=== PATIENT | female | born 1990 | race Two or more races ===

== ENCOUNTER 2016-09-28 00:07 | Emergency (ER) | payer OTHER ==
[~2016-09-28 00:07] MED LIST: ALPR0.5T6 PO; BENZ100C PO; ESCI10TA10 PO; HYDR-971 PO; METR500T PO; NAPR500T PO; ONDA4TAB7 PO; POLY17PO29 PO
[2016-09-28 00:09] VITALS: BP 121/78
--- NOTE | 2016-09-28 01:42 | PHYS DOC ---
Past Medical History Past Medical History: Anxiety, Asthma, Migraines, STD Past Surgical History: Tubal ligation, Other Additional Past Surgical Histo: D&C, RUPTURED CYST REMOVAL Alcohol Use: None Drug Use: None Adult General Chief Complaint Chief Complaint: ALLERGIC REACTION HPI HPI Patient is a 25 year old female presents emergency department stating that she was placed on Augmentin by her primary care physician for gonorrhea. Patient states she was seen at [facility] in which they tested her positive for gonorrhea and she was not treated at that time. Patient presents to the emergency department tonight stating that she has had tingling around her mouth and feeling is that she is itchy after taking the Augmentin. Patient continues to state that she is having vaginal discharge with lower abdominal pain and discomfort. She denies any urinary symptoms. Review of Systems Review of Systems Constitutional: Denies fever or chills [] Eyes: Denies change in visual acuity, redness, or eye pain [] HENT: Denies nasal congestion or sore throat [] Respiratory: Denies cough or shortness of breath [] Cardiovascular: No additional information not addressed in HPI [] GI: lower abdominal pain, denies nausea, vomiting, bloody stools or diarrhea [] : Denies dysuria or hematuria. C/o vaginal discharge Musculoskeletal: Denies back pain or joint pain [] Integument: Denies rash or skin lesions [] Neurologic: Denies headache, focal weakness or sensory changes [] Current Medications Current Medications Current Medications Medications (Trade) Dose Ordered Sig/Rob Start Time Stop Time Status Last Admin Dose Admin Azithromycin (Zithromax) 1,000 mg 1X ONCE 09/28/16 02:00 09/28/16 02:01 DC 09/28/16 02:10 1,000 MG Ceftriaxone Sodium (Rocephin Im) 250 mg 1X ONCE 09/28/16 02:00 09/28/16 02:01 DC 09/28/16 02:11 250 MG Allergies Allergies Allergies Coded Allergies Type Severity Reaction Last Updated Verified morphine Allergy Intermediate Hives 06/02/13 Yes tramadol Allergy Intermediate VOMITING 06/02/13 Yes Physical Exam Physical Exam Constitutional: Well developed, well nourished, no acute distress, non-toxic appearance. [] HENT: Normocephalic, atraumatic, bilateral external ears normal, oropharynx moist, no oral exudates, nose normal. [] Eyes: PERRLA, EOMI, conjunctiva normal, no discharge. [] Neck: Normal range of motion, no tenderness, supple, no stridor. [] Cardiovascular:Heart rate regular rhythm, no murmur [] Lungs & Thorax: Bilateral breath sounds clear to auscultation [] Abdomen: Bowel sounds hypoactive, soft, no tenderness, no masses, no pulsatile masses. [] Skin: Warm, dry, no erythema, no rash. [] Back: No tenderness, no CVA tenderness. [] Extremities: No tenderness, no cyanosis, no clubbing, ROM intact, no edema. [] Neurologic: Alert and oriented X 3, normal motor function, normal sensory function, no focal deficits noted. [] Psychologic: Affect normal, judgement normal, mood normal. [] Current Patient Data Vital Signs Vital Signs Date Time Temp Pulse Resp B/P Pulse Ox O2 Delivery O2 Flow Rate FiO2 09/28/16 00:09 97.7 66 16 100 Room Air 97.7 Lab Values Microbiology 09/28/16 Wet Prep - Final, Complete EKG EKG [] Radiology/Procedures Radiology/Procedures [] Course & Med Decision Making Course & Med Decision Making Pertinent Labs and Imaging studies reviewed. (See chart for details) Patient with the vaginal exam completed with no discharge noted in the vaginal vault patient does have an odor noted from the vaginal area. On manual exam no adnexal tenderness noted no CMT tenderness noted. Patient will be treated for gonorrhea as which she states she was tested positive for when she was at [facility]. Wet prep negative for BV. Patient was instructed to avoid sexual intercourse for the next 2 weeks. Signs and symptoms to return back to emergency department as been provided. [] Dragon Disclaimer Dragon Disclaimer This electronic medical record was generated, in whole or in part, using a voice recognition dictation system. Departure Departure Impression: Primary Impression: Vaginitis Additional Impression: Exposure to sexually transmitted disease (STD) Disposition: 01 HOME, SELF-CARE Condition: STABLE Referrals: LON MORRIS MD (PCP) Patient Instructions: Sexually Transmitted Disease, [id number], Vaginitis, [id number] Additional Instructions: Activity as tolerated. Avoid sexual intercourse for the next 2 weeks. Medication as prescribed. Follow-up primary care physician next 5-7 days. Return back to emergency prior signs and symptoms of become worse. Problem Qualifiers DANA NAVARRO DEVELOPMENT EXPERT Sep 28, 2016 01:42
[2016-09-28] MEDS ORDERED: AZITHROMYCIN 250 MG TABLET. PO ONE (02:00)
[2016-09-28] MEDS ORDERED: cefTRIAXone IM 250 MG VIAL IM ONE (02:00)
[2016-09-28] MEDS ORDERED: METR500T PO (02:03)
== END 2016-09-28 02:15 | disposition home or self-care (01) ==
LOC: ER 00:07
DX: N76.0 Acute vaginitis (principal); N89.8 Other specified noninflammatory disorders of vagina; F41.9 Anxiety disorder, unspecified; J45.909 Unspecified asthma, uncomplicated; G43.909 Migraine, unspecified, not intractable, without status migrainosus; Z98.51 Tubal ligation status; Z88.5 Allergy status to narcotic agent; Z20.2 Contact with and (suspected) exposure to infections with a predominantly sexual mode of transmission; Z88.6 Allergy status to analgesic agent
CPT/HCPCS: 87491; 87591; 96372; 99284; J0696; Q0111; Q0144

== ENCOUNTER 2017-07-05 12:01 | Emergency (ER) | payer OTHER ==
[2017-07-05] MEDS: predniSONE 20 MG TABLET PO ×2 (13:03)
[2017-07-05] MEDS: FAMOTIDINE 20 MG TABLET. PO ×2 (13:03)
[2017-07-05] MEDS: diphenhydrAMINE HCL 25 MG CAPSULE PO ×2 (13:03)
== END 2017-07-05 13:10 | disposition home or self-care (01) ==
LOC: ER 12:01
DX: L25.9 Unspecified contact dermatitis, unspecified cause (principal); J45.909 Unspecified asthma, uncomplicated; F41.9 Anxiety disorder, unspecified; G43.909 Migraine, unspecified, not intractable, without status migrainosus; Z98.51 Tubal ligation status; Z88.5 Allergy status to narcotic agent
CPT/HCPCS: 99284; J7512; Q0163

== ENCOUNTER 2017-10-28 13:36 | Emergency (ER) | payer OTHER ==
[2017-10-28] MEDS: fentaNYL PF VIAL 100 MCG/2 ML VIAL IV (14:27)
[2017-10-28 14:34] LABS: ADD MAN DIFF? NO
[2017-10-28 14:39] LABS: BASO % 0 % (0-3); EOS % 1 % (0-3); HEMATOCRIT 34.7 % (36.0-47.0); HEMOGLOBIN 11.9 g/dL (12.0-15.5); LYMPH # 1.6 x10^3/uL (1.0-4.8); LYMPH % 22 % (24-48); MEAN CORPUSCULAR HEMOGLOBIN 30 pg (25-35); MEAN CORPUSCULAR HGB CONC 34 g/dL (31-37); MEAN CORPUSCULAR VOLUME 86 fL (79-100); MONO # 0.6 x10^3/uL (0.0-1.1); MONO % 8 % (0-9); NEUT # 5.1 x10^3uL (1.8-7.7); NEUT % 69 % (31-73); PLATELET COUNT 176 x10^3/uL (140-400); RED BLOOD COUNT 4.02 x10^6/uL (3.50-5.40); RED CELL DISTRIBUTION WIDTH 12.6 % (11.5-14.5); WHITE BLOOD COUNT 7.4 x10^3/uL (4.0-11.0)
[2017-10-28 14:53] LABS: ANION GAP 8 (6-14); BLOOD UREA NITROGEN 16 mg/dL (7-20); BUN/CREATININE RATIO 27 (6-20); CALCIUM 8.1 mg/dL (8.5-10.1); CARBON DIOXIDE 26 mmol/L (21-32); CHLORIDE 107 mmol/L (98-107); CREATININE 0.6 mg/dL (0.6-1.0); GLUCOSE 107 mg/dL (70-99); POTASSIUM 3.7 mmol/L (3.5-5.1); SODIUM 141 mmol/L (136-145)
[2017-10-28 14:58] LABS: ALBUMIN 3.6 g/dL (3.4-5.0); ALBUMIN/GLOBULIN RATIO 1.1 (1.0-1.7); ALK PHOS 38 U/L (46-116); ALT (SGPT) 14 U/L (14-59); AST (SGOT) 11 U/L (15-37); LIPASE 85 U/L (73-393); TOTAL BILIRUBIN 0.2 mg/dL (0.2-1.0); TOTAL PROTEIN 6.9 g/dL (6.4-8.2)
[2017-10-28] MEDS ORDERED: CONTRAST GIVEN MC (15:00)
[2017-10-28 15:04] LABS: URINE HCG POC HCG NEGATIVE (Negative)
[2017-10-28] MEDS: IOHEXOL 300 MG/ML 100ML VIAL. IV (15:11)
[2017-10-28 15:25] LABS: NEG OBC SER NEG; POS OBC SER POS; PREG TEST PT QUAL NEGATIVE (NEG)
[2017-10-28] MEDS: oxyCODONE IR 5 MG TABLET PO (16:17)
[2017-10-28 16:45] LABS: BILIRUBIN,URINE NEGATIVE (NEG); CLARITY,URINE CLEAR; COLOR,URINE YELLOW; GLUCOSE,URINE NEGATIVE (NEG); NITRITE,URINE NEGATIVE (NEG); PROTEIN,URINE NEGATIVE (NEG-TRACE); UROBILINOGEN,URINE 0.2 mg/dL (0.2 mg/dL)
[2017-10-28 17:12] LABS: BACTERIA,URINE 0 /HPF (0-FEW); RBC,URINE 0 /HPF (0-2); SQUAMOUS EPITHELIAL CELL,UR OCC /LPF; WBC,URINE OCC /HPF (0-4)
== END 2017-10-28 17:55 | disposition home or self-care (01) ==
LOC: ER 13:36
DX: S60.042A Contusion of left ring finger without damage to nail, initial encounter (principal); S00.81XA Abrasion of other part of head, initial encounter; R10.84 Generalized abdominal pain; J45.909 Unspecified asthma, uncomplicated; G43.909 Migraine, unspecified, not intractable, without status migrainosus; F17.210 Nicotine dependence, cigarettes, uncomplicated; Z98.51 Tubal ligation status; Z88.5 Allergy status to narcotic agent; Z88.6 Allergy status to analgesic agent; Y04.0XXA Assault by unarmed brawl or fight, initial encounter; Y93.89 Activity, other specified; Y99.8 Other external cause status; Y92.89 Other specified places as the place of occurrence of the external cause
CPT/HCPCS: 36415; 70450; 70486; 71046; 72125; 73130; 74177; 80053; 81001; 81025; 83690; 84703; 85025; 96374; 99285-25; J3010; Q9967

== ENCOUNTER 2019-10-22 09:16 | Emergency (ER) | payer MEDICAID, OTHER ==
[~2019-10-22] VITALS: Ht 157.5 cm; Wt 74.5 kg
[~2019-10-22 09:16] MED LIST changes: +DIPH25CA58 PO; -ESCI10TA10 PO; +FAMO20TA5 PO; +HYDR-3164 PO; -HYDR-971 PO; +LEXAPRO10 MG PO; +NAPR-683 PO; -NAPR500T PO; +PRED50TA PO; +TRIA15CR3 TP
[2019-10-22] MEDS ORDERED: NAPR-514 PO (09:35)
--- NOTE | 2019-10-22 09:35 | PHYS DOC ---
Past Medical History Past Medical History: Anxiety, Asthma, Migraines, STD Past Surgical History: Tubal ligation, Other Additional Past Surgical Histo: D&C, RUPTURED CYST REMOVAL Smoking Status: Current Every Day Smoker Alcohol Use: None Drug Use: None General Adult EDM: Chief Complaint: WRIST PAIN HPI: HPI: Patient is a 29-year-old otherwise healthy female who presents with a cyst on the volar aspect of her distal left wrist. She states this is been there for some time but it seems to be getting bigger and now is causing her some pain and paresthesias in the area. There is been no redness. There is been no injury to the area. She states she has had these in the past and they have gone away. [] Review of Systems: Review of Systems: Constitutional: Denies fever or chills. [] Eyes: Denies change in visual acuity. [] Musculoskeletal: Per HPI [] Integument: Denies rash. [] Psychiatric: Denies depression or anxiety. [] Heart Score: Risk Factors: Risk Factors: DM, Current or recent (<one month) smoker, HTN, HLP, family history of CAD, obesity. Risk Scores: Score 0 - 3: 2.5% MACE over next 6 weeks - Discharge Home Score 4 - 6: 20.3% MACE over next 6 weeks - Admit for Clinical Observation Score 7 - 10: 72.7% MACE over next 6 weeks - Early Invasive Strategies Allergies: Allergies: Allergies Coded Allergies Type Severity Reaction Last Updated Verified morphine Allergy Intermediate Hives 06/02/13 Yes tramadol Allergy Intermediate VOMITING 06/02/13 Yes Physical Exam: PE: Constitutional: Well developed, well nourished, no acute distress, non-toxic appearance. [] HENT: Normocephalic, atraumatic, bilateral external ears normal, oropharynx moist, no oral exudates, nose normal. [] [] Skin: Warm, dry, no erythema, no rash. [] Back: No tenderness, no CVA tenderness. [] Extremities: There is a pea-sized ganglion cyst on the volar aspect of the left distal wrist. [] Neurologic: Alert and oriented X 3, normal motor function, normal sensory function, no focal deficits noted. [] Psychologic: Affect normal, judgement normal, mood normal. [] EKG: EKG: [] Radiology/Procedures: Radiology/Procedures: [] Course & Med Decision Making: Course & Med Decision Making Pertinent Labs and Imaging studies reviewed. (See chart for details) [] Dragon Disclaimer: Jesús Disclaimer: This electronic medical record was generated, in whole or in part, using a voice recognition dictation system. Departure Departure Impression: Primary Impression: Ganglion cyst of flexor tendon sheath Disposition: HOME, SELF-CARE Condition: STABLE Referrals: BRIAN HORTA MD Patient Instructions: Ganglion Cyst Scripts Naproxen (NAPROXEN) 500 Mg Tablet 1 TAB PO BID PRN for PAIN, #30 TAB 1 Refill Prov: LILIYA SALDAÑA DO 10/22/19 LILIYA SALDAÑA DO October 22, 2019 09:35
[2019-10-22 09:40] VITALS: BP 140/67
== END 2019-10-22 09:45 | disposition home or self-care (01) ==
LOC: ER 09:16
DX: M67.432 Ganglion, left wrist (principal); G43.909 Migraine, unspecified, not intractable, without status migrainosus; J45.909 Unspecified asthma, uncomplicated; F17.200 Nicotine dependence, unspecified, uncomplicated; Z88.5 Allergy status to narcotic agent; Z88.6 Allergy status to analgesic agent
CPT/HCPCS: 99282

== ENCOUNTER 2019-11-10 21:11 | Emergency (ER) | payer MEDICAID ==
[~2019-11-10] VITALS: Ht 167.6 cm; Wt 84.1 kg
[~2019-11-10 21:11] MED LIST changes: +NAPR-514 PO
[2019-11-10] MEDS ORDERED: DIPH,PERTUSS(ACELL),TET VAC/PF 0.5 ML SYRINGE. VAX IM ONE (22:15)
[2019-11-10] MEDS ORDERED: AMOXICILLIN/K CLAV 875/125MG TABLET. PO ONE (22:15)
[2019-11-10] MEDS ORDERED: oxyCODONE IR 5 MG TABLET PO ONE (22:15)
[2019-11-10 22:26] VITALS: BP 110/77
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
[2019-11-10] MEDS ORDERED: ONDANSETRON ODT 4 MG TAB.RAPDIS. PO ONE (22:45)
[2019-11-10] MEDS ORDERED: HYDROcodone/APAP 7.5/325MG 1 TAB TABLET PO ONE (23:00)
[2019-11-10] MEDS ORDERED: AMOX1TAB61 PO (23:20)
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
[2019-11-10 23:27] LABS: BASO % 0 % (0-3); EOS # 0.1 x10^3/uL (0.0-0.7); EOS % 1 % (0-3); HEMATOCRIT 36.2 % (36.0-47.0); HEMOGLOBIN 12.4 g/dL (12.0-15.5); LYMPH # 2.6 x10^3/uL (1.0-4.8); LYMPH % 26 % (24-48); MEAN CORPUSCULAR HEMOGLOBIN 29 pg (25-35); MEAN CORPUSCULAR HGB CONC 34 g/dL (31-37); MEAN CORPUSCULAR VOLUME 86 fL (79-100); MONO # 0.7 x10^3/uL (0.0-1.1); MONO % 7 % (0-9); NEUT # 6.6 x10^3/uL (1.8-7.7); NEUT % 66 % (31-73); PLATELET COUNT 204 x10^3/uL (140-400); RED BLOOD COUNT 4.21 x10^6/uL (3.50-5.40); RED CELL DISTRIBUTION WIDTH 13.2 % (11.5-14.5)
[2019-11-10 23:35] LABS: CALCIUM 8.4 mg/dL (8.5-10.1); CREATININE 0.7 mg/dL (0.6-1.0); GFR 98.3; POTASSIUM 3.3 mmol/L (3.5-5.1)
[2019-11-10 23:39] LABS: PROTHROMBIN TIME PATIENT 12.9 SEC (11.7-14.0)
== END 2019-11-11 00:13 | disposition home or self-care (01) ==
LOC: ER 21:11
DX: S01.511A Laceration without foreign body of lip, initial encounter (principal); S60.221A Contusion of right hand, initial encounter; S60.011A Contusion of right thumb without damage to nail, initial encounter; S60.021A Contusion of right index finger without damage to nail, initial encounter; G43.909 Migraine, unspecified, not intractable, without status migrainosus; J45.909 Unspecified asthma, uncomplicated; F17.200 Nicotine dependence, unspecified, uncomplicated; Z88.5 Allergy status to narcotic agent; Z88.6 Allergy status to analgesic agent; Y08.89XA Assault by other specified means, initial encounter; Y93.89 Activity, other specified; Y92.89 Other specified places as the place of occurrence of the external cause; Y99.8 Other external cause status
CPT/HCPCS: 12011; 29125; 36415; 73100; 73130; 80048; 85025; 85610; 85730; 90471; 90715; 99284

== ENCOUNTER 2020-01-19 12:12 | Emergency (ER) | payer MEDICAID ==
[~2020-01-19] VITALS: Ht 157.5 cm; Wt 67.0 kg
[2020-01-19 12:12] VITALS: BP 93/44
[~2020-01-19 12:12] MED LIST changes: +AMOX1TAB61 PO
[2020-01-19] MEDS ORDERED: KETOROLAC 30 MG/ML VIAL. IVP ONE (13:15)
[2020-01-19] MEDS ORDERED: ONDANSETRON PF 4 MG/2 ML VIAL. IVP ONE (13:15)
[2020-01-19] MEDS ORDERED: FAMOTIDINE 20 MG/2 ML VIAL IVP ONE (13:15)
[2020-01-19] MEDS ORDERED: IV NORMAL SALINE 1000ML BAG 1,000 ML IV ONE (13:15)
[2020-01-19 13:20] LABS: BILIRUBIN,URINE NEGATIVE (NEG); CLARITY,URINE CLEAR; COLOR,URINE YELLOW; NITRITE,URINE NEGATIVE (NEG); PROTEIN,URINE NEGATIVE (NEG-TRACE)
[2020-01-19 13:31] LABS: BASO % 1 % (0-3); EOS # 0.1 x10^3/uL (0.0-0.7); EOS % 2 % (0-3); HEMATOCRIT 34.3 % (36.0-47.0); HEMOGLOBIN 11.8 g/dL (12.0-15.5); LYMPH # 2.3 x10^3/uL (1.0-4.8); LYMPH % 39 % (24-48); MEAN CORPUSCULAR HEMOGLOBIN 30 pg (25-35); MEAN CORPUSCULAR HGB CONC 34 g/dL (31-37); MEAN CORPUSCULAR VOLUME 87 fL (79-100); MONO # 0.4 x10^3/uL (0.0-1.1); MONO % 7 % (0-9); NEUT # 3.1 x10^3/uL (1.8-7.7); NEUT % 52 % (31-73); PLATELET COUNT 203 x10^3/uL (140-400); RED BLOOD COUNT 3.96 x10^6/uL (3.50-5.40); WHITE BLOOD COUNT 5.9 x10^3/uL (4.0-11.0)
[2020-01-19 13:59] LABS: BACTERIA,URINE FEW /HPF (0-FEW); RBC,URINE 0 /HPF (0-2); SQUAMOUS EPITHELIAL CELL,UR MANY /LPF; WBC,URINE RARE /HPF (0-4)
[2020-01-19 14:17] LABS: CALCIUM 8.1 mg/dL (8.5-10.1); CREATININE 0.5 mg/dL (0.6-1.0); GFR 144.9; POTASSIUM 3.9 mmol/L (3.5-5.1)
[2020-01-19 14:23] LABS: ALBUMIN 3.6 g/dL (3.4-5.0); ALBUMIN/GLOBULIN RATIO 1.1 (1.0-1.7); MAGNESIUM 2.1 mg/dL (1.8-2.4); TOTAL BILIRUBIN 0.4 mg/dL (0.2-1.0)
[2020-01-19] MEDS ORDERED: SULF1TAB23 PO (15:02)
[2020-01-19] MEDS ORDERED: ONDA4TAB7 PO (15:02)
--- NOTE | 2020-01-19 15:03 | PHYS DOC ---
Past Medical History Past Medical History: Asthma, Hyperthyroid, Migraines Past Surgical History: Tubal ligation Additional Past Surgical Histo: D&C, RUPTURED CYST REMOVAL Smoking Status: Current Every Day Smoker Alcohol Use: Rarely Drug Use: None General Adult EDM: Chief Complaint: ABDOMINAL PAIN HPI: HPI: Patient is a 29 year old female with history of hypothyroidism, migraine headaches, who presents the ED today complaining of 7 out of 10 intermittent generalized abdominal pain that has been going on for 1 week with nausea and vomiting. Denies any fever. Denies any back pain. Denies anything specifically exacerbating or relieving the pain. Denies any urgency, frequency, dysuria. Patient is also complaining of a rash around her bellybutton with the drainage that she noted yesterday. Review of Systems: Review of Systems: Constitutional: Denies fever or chills. [] Eyes: Denies change in visual acuity. [] HENT: Denies nasal congestion or sore throat. [] Respiratory: Denies cough or shortness of breath. [] Cardiovascular: Denies chest pain or edema. [] GI: Reports abdominal pain, nausea vomiting, denies bloody stools or diarrhea. [] : Denies dysuria. [] Musculoskeletal: Denies back pain or joint pain. [] Integument: Reports rash around the bellybutton Neurologic: Denies headache, focal weakness or sensory changes. [] Psychiatric: Denies depression or anxiety. [] Heart Score: Risk Factors: Risk Factors: DM, Current or recent (<one month) smoker, HTN, HLP, family history of CAD, obesity. Risk Scores: Score 0 - 3: 2.5% MACE over next 6 weeks - Discharge Home Score 4 - 6: 20.3% MACE over next 6 weeks - Admit for Clinical Observation Score 7 - 10: 72.7% MACE over next 6 weeks - Early Invasive Strategies Current Medications: Current Medications Medications (Trade) Dose Ordered Sig/Rob Start Time Stop Time Status Last Admin Dose Admin Famotidine (Pepcid Vial) 20 mg 1X ONCE 01/19/20 13:15 01/19/20 13:17 DC 01/19/20 13:36 20 MG Ketorolac Tromethamine (Toradol 30mg Vial) 30 mg 1X ONCE 01/19/20 13:15 01/19/20 13:17 DC 01/19/20 13:36 30 MG Ondansetron HCl (Zofran) 4 mg 1X ONCE 01/19/20 13:15 01/19/20 13:17 DC 01/19/20 13:37 4 MG Sodium Chloride 1,000 ml @ 1,000 mls/hr 1X ONCE 01/19/20 13:15 01/19/20 14:14 DC 01/19/20 13:15 1,000 MLS/HR Allergies: Allergies: Allergies Coded Allergies Type Severity Reaction Last Updated Verified morphine Allergy Intermediate Hives 06/02/13 Yes tramadol Allergy Intermediate VOMITING 06/02/13 Yes Physical Exam: PE: Constitutional: Well developed, well nourished, no acute distress, non-toxic appearance. [] HENT: Normocephalic, atraumatic, bilateral external ears normal, oropharynx moist, no oral exudates, nose normal. [] Eyes: PERRLA, EOMI, conjunctiva normal, no discharge. [] Neck: Normal range of motion, no tenderness, supple, no stridor. [] Cardiovascular:Heart rate regular rhythm, no murmur [] Lungs & Thorax: Bilateral breath sounds clear to auscultation [] Abdomen: Bowel sounds normal, soft, no tenderness, no masses, no pulsatile masses. [] Skin: Warm, dry, small amount of erythematous rash cellulitis type of rash around the bellybutton. Back: No tenderness, no CVA tenderness. [] Extremities: No tenderness, no cyanosis, no clubbing, ROM intact, no edema. [] Neurologic: Alert and oriented X 3, normal motor function, normal sensory function, no focal deficits noted. [] Psychologic: Affect normal, judgement normal, mood normal. [] Current Patient Data: Labs: Laboratory Tests Test 01/19/20 12:58 01/19/20 13:00 01/19/20 13:07 White Blood Count 5.9 x10^3/uL (4.0-11.0) Red Blood Count 3.96 x10^6/uL (3.50-5.40) Hemoglobin 11.8 g/dL (12.0-15.5) L Hematocrit 34.3 % (36.0-47.0) L Mean Corpuscular Volume 87 fL (79-100) Mean Corpuscular Hemoglobin 30 pg (25-35) Mean Corpuscular Hemoglobin Concent 34 g/dL (31-37) Red Cell Distribution Width 13.0 % (11.5-14.5) Platelet Count 203 x10^3/uL (140-400) Neutrophils (%) (Auto) 52 % (31-73) Lymphocytes (%) (Auto) 39 % (24-48) Monocytes (%) (Auto) 7 % (0-9) Eosinophils (%) (Auto) 2 % (0-3) Basophils (%) (Auto) 1 % (0-3) Neutrophils # (Auto) 3.1 x10^3/uL (1.8-7.7) Lymphocytes # (Auto) 2.3 x10^3/uL (1.0-4.8) Monocytes # (Auto) 0.4 x10^3/uL (0.0-1.1) Eosinophils # (Auto) 0.1 x10^3/uL (0.0-0.7) Basophils # (Auto) 0.0 x10^3/uL (0.0-0.2) Sodium Level 139 mmol/L (136-145) Potassium Level 3.9 mmol/L (3.5-5.1) Chloride Level 105 mmol/L (98-107) Carbon Dioxide Level 27 mmol/L (21-32) Anion Gap 7 (6-14) Blood Urea Nitrogen 14 mg/dL (7-20) Creatinine 0.5 mg/dL (0.6-1.0) L Estimated GFR (Cockcroft-Gault) 144.9 BUN/Creatinine Ratio 28 (6-20) H Glucose Level 95 mg/dL (70-99) Calcium Level 8.1 mg/dL (8.5-10.1) L Magnesium Level 2.1 mg/dL (1.8-2.4) Total Bilirubin 0.4 mg/dL (0.2-1.0) Aspartate Amino Transferase (AST) 11 U/L (15-37) L Alanine Aminotransferase (ALT) 15 U/L (14-59) Alkaline Phosphatase 40 U/L (46-116) L Total Protein 7.0 g/dL (6.4-8.2) Albumin 3.6 g/dL (3.4-5.0) Albumin/Globulin Ratio 1.1 (1.0-1.7) Lipase 78 U/L (73-393) Ethyl Alcohol Level < 10 mg/dL (0-10) Urine Collection Type Unknown Urine Color Yellow Urine Clarity Clear Urine pH 6.0 (<5.0-8.0) Urine Specific Seymour >=1.030 (1.000-1.030) Urine Protein Negative mg/dL (NEG-TRACE) Urine Glucose (UA) Negative mg/dL (NEG) Urine Ketones (Stick) Negative mg/dL (NEG) Urine Blood Negative (NEG) Urine Nitrite Negative (NEG) Urine Bilirubin Negative (NEG) Urine Urobilinogen Dipstick 1.0 mg/dL (0.2 mg/dL) Urine Leukocyte Esterase Trace (NEG) Urine RBC 0 /HPF (0-2) Urine WBC Rare /HPF (0-4) Urine Squamous Epithelial Cells Many /LPF Urine Bacteria Few /HPF (0-FEW) Urine Mucus Marked /LPF POC Urine HCG, Qualitative Hcg negative (Negative) Laboratory Tests 01/19/20 12:58 Laboratory Tests 01/19/20 12:58 Vital Signs: Vital Signs Date Time Temp Pulse Resp B/P (MAP) Pulse Ox O2 Delivery O2 Flow Rate FiO2 01/19/20 12:12 98.6 64 16 93/44 (60) 99 Room Air 98.6 EKG: EKG: [] Radiology/Procedures: Radiology/Procedures: [] Course & Med Decision Making: Course & Med Decision Making Pertinent Labs and Imaging studies reviewed. (See chart for details) This is a 29-year-old female patient presenting to the ED today complaining of left abdominal pain, nausea vomiting, symptoms began a week ago. Also complaining of a rash around the bellybutton with drainage from the bellybutton. CBC with a normal WBC, CMP with no acute findings. Urine analysis negative for infection. Patient was given a liter of fluid, Zofran,Pepcid and Toradol. Tetanus is up-to-date. Discharged with Bactrim and Zofran. Follow-up with PCP in 1 to 2 weeks Jesús Disclaimer: Jesús Disclaimer: This electronic medical record was generated, in whole or in part, using a voice recognition dictation system. Departure Departure Impression: Primary Impression: Abdominal pain Qualified Codes: R10.84 - Generalized abdominal pain Additional Impressions: Nausea and vomiting Qualified Codes: R11.2 - Nausea with vomiting, unspecified Cellulitis, abdominal wall Disposition: HOME, SELF-CARE Condition: STABLE Referrals: NO PCP (PCP) Follow-up with your own doctor in 1 to 2 weeks Patient Instructions: Abdominal Pain (Nonspecific), Cellulitis, [id number], Nausea and Vomiting Additional Instructions: Please take the prescribed antibiotics for infection around your bellybutton. Ensure you complete them. Take Zofran as needed for nausea vomiting. Consider taking a clear fluids and advance your diet as tolerated. Follow-up with your own doctor in 1 to 2 weeks Scripts Sulfamethoxazole/Trimethoprim (BACTRIM 400-80 MG TABLET) 1 Each Tablet 1 TAB PO BID for 10 Days, #20 TAB 0 Refills Prov: VIJAY YE APRN 01/19/20 Ondansetron Hcl (ZOFRAN) 4 Mg Tablet 1 TAB PO Q6HRS, #20 TAB Prov: VIJAY YE APRN 01/19/20 Justicifation of Admission Dx: Justifications for Admission: Justification of Admission Dx: N/A VIJAY YE APRN Jan 19, 2020 15:03
[2020-01-19 17:54] LABS: BARBITURATES NEG (NEG); BENZODIAZEPINES NEG (NEG); CANNABINOIDS POS (NEG); COCAINE NEG (NEG); METHADONE NEG (NEG); OPIATES POS (NEG); PHENCYCLIDINE NEG (NEG)
[2020-01-19 17:55] LABS: AMPHETAMINE/METHAMPHETAMINE NEG (NEG)
== END 2020-01-19 15:29 | disposition home or self-care (01) ==
LOC: ER 12:12
DX: R10.84 Generalized abdominal pain (principal); R11.2 Nausea with vomiting, unspecified; L03.311 Cellulitis of abdominal wall; G43.909 Migraine, unspecified, not intractable, without status migrainosus; E03.9 Hypothyroidism, unspecified; J45.909 Unspecified asthma, uncomplicated; F17.200 Nicotine dependence, unspecified, uncomplicated; Z98.51 Tubal ligation status; Z88.5 Allergy status to narcotic agent; Z88.6 Allergy status to analgesic agent
CPT/HCPCS: 36415; 80053; 80307; 81001; 81025; 83690; 83735; 85025; 87086; 96361; 96374; 96375; 99284; G0480; J1885; J2405; J3490; J7030

== ENCOUNTER 2020-04-25 21:41 | Emergency (ER) | payer MEDICAID ==
[~2020-04-25] VITALS: Ht 157.5 cm; Wt 65.0 kg
[~2020-04-25 21:41] MED LIST changes: +SULF1TAB23 PO
[2020-04-25] MEDS ORDERED: ONDA4TAB7 PO (22:57)
[2020-04-25] MEDS ORDERED: DICY20TA3 PO (22:57)
--- NOTE | 2020-04-25 22:57 | PHYS DOC ---
Past Medical History Past Medical History: Asthma, Hyperthyroid, Migraines Past Surgical History: Tubal ligation Additional Past Surgical Histo: D&C, RUPTURED CYST REMOVAL Smoking Status: Current Every Day Smoker Alcohol Use: Rarely Drug Use: None General Adult EDM: Chief Complaint: NAUSEA/VOMITING/DIARRHA HPI: HPI: Patient is a 29 year old female with history of tubal ligation presenting today complaining of diarrhea, nausea, vomiting, body aches, chills, headaches, abdominal cramping, symptoms been going on for 3 days. She states she lives in a home with another family member that was diagnosed with viral pneumonia. Patient denies any fever, coughing, congestion. Denies anything specifically exacerbating or relieving her symptoms. Review of Systems: Review of Systems: Constitutional: Reports body aches, denies fever or chills. [] Eyes: Denies change in visual acuity. [] HENT: Denies nasal congestion or sore throat. [] Respiratory: Denies cough or shortness of breath. [] Cardiovascular: Denies chest pain or edema. [] GI: Reports abdominal pain, nausea, vomiting, diarrhea, denies any bloody stools or hematemesis : Denies dysuria. [] Musculoskeletal: Denies back pain or joint pain. [] Integument: Denies rash. [] Neurologic: Reports headaches, denies focal weakness or sensory changes. [] Psychiatric: Denies depression or anxiety. [] Heart Score: Risk Factors: Risk Factors: DM, Current or recent (<one month) smoker, HTN, HLP, family history of CAD, obesity. Risk Scores: Score 0 - 3: 2.5% MACE over next 6 weeks - Discharge Home Score 4 - 6: 20.3% MACE over next 6 weeks - Admit for Clinical Observation Score 7 - 10: 72.7% MACE over next 6 weeks - Early Invasive Strategies Current Medications: Current Medications Medications (Trade) Dose Ordered Sig/Rob Start Time Stop Time Status Last Admin Dose Admin Dicyclomine HCl (Bentyl) 20 mg 1X ONCE 04/25/20 23:00 04/25/20 23:01 UNV Famotidine (Pepcid Vial) 20 mg 1X ONCE 04/25/20 23:00 04/25/20 23:01 UNV Fentanyl Citrate (Fentanyl 2ml Vial) 50 mcg 1X ONCE 04/25/20 23:00 04/25/20 23:01 UNV Ondansetron HCl (Zofran) 4 mg 1X ONCE 04/25/20 23:00 04/25/20 23:01 UNV Sodium Chloride 1,000 ml @ 1,000 mls/hr 1X ONCE 04/25/20 23:00 04/25/20 23:59 UNV Allergies: Allergies: Allergies Coded Allergies Type Severity Reaction Last Updated Verified morphine Allergy Intermediate Hives 06/02/13 Yes tramadol Allergy Intermediate VOMITING 06/02/13 Yes Physical Exam: PE: Constitutional: Well developed, well nourished, no acute distress, non-toxic appearance. [] HENT: Normocephalic, atraumatic, bilateral external ears normal, oropharynx moist, no oral exudates, nose normal. [] Eyes: PERRLA, EOMI, conjunctiva normal, no discharge. [] Neck: Normal range of motion, no tenderness, supple, no stridor. [] Cardiovascular:Heart rate regular rhythm, no murmur [] Lungs & Thorax: Bilateral breath sounds clear to auscultation [] Abdomen: Bowel sounds normal, soft, no tenderness, no masses, no pulsatile masses. [] Skin: Warm, dry, no erythema, no rash. [] Back: No tenderness, no CVA tenderness. [] Extremities: No tenderness, no cyanosis, no clubbing, ROM intact, no edema. [] Neurologic: Alert and oriented X 3, normal motor function, normal sensory function, no focal deficits noted. [] Psychologic: Affect normal, judgement normal, mood normal. [] Current Patient Data: Vital Signs: Vital Signs Date Time Temp Pulse Resp B/P (MAP) Pulse Ox O2 Delivery O2 Flow Rate FiO2 04/25/20 22:11 97.5 54 16 102/51 (68) 98 Room Air 97.5 EKG: EKG: [] Radiology/Procedures: Radiology/Procedures: [] Course & Med Decision Making: Course & Med Decision Making Pertinent Labs and Imaging studies reviewed. (See chart for details) This is a 29-year-old female patient presenting to the ED today with symptoms suspicious of COVID-19 including diarrhea, vomiting, body aches, chills, symptoms for 3 days. Also resides in a house with somebody who was diagnosed with viral pneumonia. Patient will be tested for COVID-19. Given IV fluids as well as supportive care medications including Zofran, Pepcid, dicyclomine. Pain medicine like fentanyl and Solu-Medrol. Discharge to home with Zofran and dicyclomine. Follow-up with PCP in 1 to 2 weeks Jesús Disclaimer: Jesús Disclaimer: This electronic medical record was generated, in whole or in part, using a voice recognition dictation system. Departure Departure Impression: Primary Impression: Person under investigation for COVID-19 Additional Impressions: Nausea and vomiting Qualified Codes: R11.2 - Nausea with vomiting, unspecified Diarrhea Qualified Codes: R19.7 - Diarrhea, unspecified Disposition: 01 DC HOME SELF CARE/HOMELESS Condition: STABLE Referrals: NO PCP (PCP) Follow-up with your doctor in the course of next week Patient Instructions: Diarrhea, Nausea and Vomiting, [id number] Additional Instructions: You were evaluated in the emergency room with symptoms suspicious of COVID-19 and were tested for the disease. Please use the prescribed medications as ordered. You will be called in the course of this week or next week with your COVID-19 results. In the meantime quarantine yourself, maintain good and hygiene, rest and push fluids. Follow-up with your doctor in the next week Scripts Dicyclomine Hcl (DICYCLOMINE HCL) 20 Mg Tablet 1 TAB PO TID, #30 TAB 1 Refill Prov: VIJAY YE APRN 04/25/20 Ondansetron Hcl (ZOFRAN) 4 Mg Tablet 1 TAB PO Q6HRS, #20 TAB Prov: VIJAY YE APRN 04/25/20 VIJAY YE APRN Apr 25, 2020 22:57
[2020-04-25 23:30] VITALS: BP 95/55
[2020-04-25] MEDS ORDERED: fentaNYL PF VIAL 100 MCG/2 ML VIAL IVP ONE (23:30)
[2020-04-25] MEDS ORDERED: DICYCLOMINE HCL 10 MG CAPSULE PO ONE (23:30)
[2020-04-25] MEDS ORDERED: ONDANSETRON PF 4 MG/2 ML VIAL. IVP ONE (23:30)
[2020-04-25] MEDS ORDERED: methylPREDNISolone SOD SUCC PF 125 MG/2 ML VIAL. IV ONE (23:30)
[2020-04-25] MEDS ORDERED: FAMOTIDINE 20 MG/2 ML VIAL IVP ONE (23:30)
[2020-04-25] MEDS ORDERED: IV NORMAL SALINE 1000ML BAG 1,000 ML IV ONE (23:30)
--- NOTE | 2020-04-30 13:28 | NUR ---
IP: Informed pt of negative COVID results. Pt verbalized understanding.
== END 2020-04-26 | disposition home or self-care (01) ==
LOC: ER 21:41
DX: R11.2 Nausea with vomiting, unspecified (principal); Z20.828 Contact with and (suspected) exposure to other viral communicable diseases; R19.7 Diarrhea, unspecified; J45.909 Unspecified asthma, uncomplicated; G43.909 Migraine, unspecified, not intractable, without status migrainosus; E03.9 Hypothyroidism, unspecified; F17.200 Nicotine dependence, unspecified, uncomplicated; Z98.51 Tubal ligation status; Z98.890 Other specified postprocedural states; Z88.6 Allergy status to analgesic agent; Z88.8 Allergy status to other drugs, medicaments and biological substances
CPT/HCPCS: 96361; 96374; 96375; 99284; C9803; J2405; J2930; J3010; J3490; J7030; U0003

== ENCOUNTER 2020-12-27 02:21 | Emergency (ER) | payer MEDICAID ==
[~2020-12-27 02:21] MED LIST changes: +DICY20TA3 PO
== END 2020-12-27 03:50 | disposition left against medical advice (07) ==
LOC: ER 02:21
DX: J02.9 Acute pharyngitis, unspecified (principal); H92.01 Otalgia, right ear
CPT/HCPCS: 81025; 99282; 99283

== ENCOUNTER 2021-03-28 17:16 | Emergency (ER) | payer MEDICAID ==
[~2021-03-28] VITALS: Ht 162.6 cm; Wt 70.0 kg
[~2021-03-28 17:16] MED LIST changes: +DICY20TA PO; -DICY20TA3 PO
[2021-03-28] MEDS ORDERED: IV NORMAL SALINE 1000ML BAG 1,000 ML IV SCH (18:15)
[2021-03-28 18:26] LABS: BASO % 0 % (0-3); EOS % 0 % (0-3); HEMOGLOBIN 10.8 g/dL (12.0-15.5); LYMPH # 1.3 x10^3/uL (1.0-4.8); LYMPH % 13 % (24-48); MEAN CORPUSCULAR HEMOGLOBIN 29 pg (25-35); MEAN CORPUSCULAR HGB CONC 34 g/dL (31-37); MEAN CORPUSCULAR VOLUME 86 fL (79-100); MONO # 0.8 x10^3/uL (0.0-1.1); MONO % 8 % (0-9); NEUT # 8.1 x10^3/uL (1.8-7.7); NEUT % 79 % (31-73); PLATELET COUNT 170 x10^3/uL (140-400); RED BLOOD COUNT 3.71 x10^6/uL (3.50-5.40); RED CELL DISTRIBUTION WIDTH 13.7 % (11.5-14.5); WHITE BLOOD COUNT 10.3 x10^3/uL (4.0-11.0)
[2021-03-28 18:28] LABS: BILIRUBIN,URINE NEGATIVE (NEG); CLARITY,URINE CLEAR; COLOR,URINE YELLOW; NITRITE,URINE NEGATIVE (NEG); PH,URINE 7.5 (<5.0-8.0); PROTEIN,URINE NEGATIVE (NEG-TRACE); UROBILINOGEN,URINE 0.2 mg/dL (0.2 mg/dL)
[2021-03-28 18:37] LABS: BARBITURATES NEG (NEG); BENZODIAZEPINES NEG (NEG); CANNABINOIDS POS (NEG); COCAINE NEG (NEG); METHADONE NEG (NEG); OPIATES POS (NEG); PHENCYCLIDINE NEG (NEG)
[2021-03-28 18:39] LABS: AMPHETAMINE/METHAMPHETAMINE NEG (NEG); U PREG PATIENT NEGATIVE (NEG)
[2021-03-28 18:42] LABS: BACTERIA,URINE MANY /HPF (0-FEW)
[2021-03-28 18:43] LABS: CALCIUM 8.6 mg/dL (8.5-10.1); CREATININE 0.7 mg/dL (0.6-1.0); GFR 97.6; POTASSIUM 3.6 mmol/L (3.5-5.1)
[2021-03-28] MEDS ORDERED: ONDANSETRON PF 4 MG/2 ML VIAL. IVP ONE (18:45)
[2021-03-28] MEDS ORDERED: fentaNYL PF VIAL 100 MCG/2 ML VIAL IVP ONE ×2 (18:45→20:15)
[2021-03-28 18:46] LABS: ALBUMIN 3.7 g/dL (3.4-5.0); ALBUMIN/GLOBULIN RATIO 1.1 (1.0-1.7); TOTAL BILIRUBIN 0.4 mg/dL (0.2-1.0)
[2021-03-28] MEDS ORDERED: IOHEXOL 300 MG/ML 100ML VIAL. IV ONE (19:00)
--- NOTE | 2021-03-28 19:07 | PHYS DOC ---
Past Medical History Past Medical History: Asthma, Hyperthyroid, Migraines Past Surgical History: Tubal ligation Additional Past Surgical Histo: D&C, RUPTURED CYST REMOVAL Smoking Status: Current Every Day Smoker Alcohol Use: None Drug Use: None General Adult EDM: Chief Complaint: ABDOMINAL PAIN HPI: HPI: Patient is a 30 year old female who presents with 2 days of flank pain bilaterally with a foul smell but no discharge and right upper quadrant pain and tenderness. She states she vomited once today. She states she took ibuprofen 2 hours prior to arrival. She rates her pain an 8 out of 10 sharp. She states she has been having urinary frequency but no burning with urination or blood in her urine. Patient is currently on her menstrual period. She states that she had a fever this morning of 100.1. Denies chest pain, shortness of air, cough, headache, dizziness, diarrhea, constipation, numbness or tingling. She has a history of migraine, asthma, hypothyroidism, migraine, ruptured cyst removal, D&C, tubal ligation, smoking. Review of Systems: Review of Systems: Constitutional: + fever or chills. [] Eyes: Denies change in visual acuity. [] HENT: Denies nasal congestion or sore throat. [] Respiratory: Denies cough or shortness of breath. [] Cardiovascular: Denies chest pain or edema. [] GI: + Right upper abdominal pain, +nausea, +vomiting, denies bloody stools or diarrhea. [] : Denies dysuria. [] Musculoskeletal: + Bilateral flank back pain or denies joint pain. [] Integument: Denies rash. [] Neurologic: Denies headache, focal weakness or sensory changes. [] Endocrine: Denies polyuria or polydipsia. [] Lymphatic: Denies swollen glands. [] Psychiatric: Denies depression or anxiety. [] Heart Score: C/O Chest Pain: No Current Medications: Current Medications Medications (Trade) Dose Ordered Sig/Rob Start Time Stop Time Status Last Admin Dose Admin Fentanyl Citrate (Fentanyl 2ml Vial) 50 mcg 1X ONCE 03/28/21 18:45 03/28/21 18:46 DC 03/28/21 18:46 50 MCG Ondansetron HCl (Zofran) 4 mg 1X ONCE 03/28/21 18:45 03/28/21 18:46 DC 03/28/21 18:46 4 MG Sodium Chloride 1,000 ml @ 1,000 mls/hr Q1H 03/28/21 18:15 03/28/21 19:14 03/28/21 18:15 1,000 MLS/HR Allergies: Allergies: Allergies Coded Allergies Type Severity Reaction Last Updated Verified morphine Allergy Intermediate Hives 03/28/21 Yes tramadol Allergy Intermediate VOMITING 03/28/21 Yes Physical Exam: PE: Constitutional: Well developed, well nourished, no acute distress, non-toxic appearance. [] HENT: Normocephalic, atraumatic, bilateral external ears normal, oropharynx moist, no oral exudates, nose normal. [] Eyes: PERRLA, EOMI, conjunctiva normal, no discharge. [] Neck: Normal range of motion, no tenderness, supple, no stridor. [] Cardiovascular:Heart rate regular rhythm, no murmur [] Lungs & Thorax: Bilateral breath sounds clear to auscultation [] Abdomen: Bowel sounds normal, soft, right upper quadrant tenderness, no masses, no pulsatile masses. [] Skin: Warm, dry, no erythema, no rash. [] Back: No tenderness, bilateral CVA tenderness. [] Extremities: No tenderness, no cyanosis, no clubbing, ROM intact, no edema. [] Neurologic: Alert and oriented X 3, normal motor function, normal sensory function, no focal deficits noted. [] Psychologic: Affect normal, judgement normal, mood normal. [] Current Patient Data: Labs: Laboratory Tests Test 03/28/21 18:20 White Blood Count 10.3 x10^3/uL (4.0-11.0) Red Blood Count 3.71 x10^6/uL (3.50-5.40) Hemoglobin 10.8 g/dL (12.0-15.5) L Hematocrit 32.0 % (36.0-47.0) L Mean Corpuscular Volume 86 fL (79-100) Mean Corpuscular Hemoglobin 29 pg (25-35) Mean Corpuscular Hemoglobin Concent 34 g/dL (31-37) Red Cell Distribution Width 13.7 % (11.5-14.5) Platelet Count 170 x10^3/uL (140-400) Neutrophils (%) (Auto) 79 % (31-73) H Lymphocytes (%) (Auto) 13 % (24-48) L Monocytes (%) (Auto) 8 % (0-9) Eosinophils (%) (Auto) 0 % (0-3) Basophils (%) (Auto) 0 % (0-3) Neutrophils # (Auto) 8.1 x10^3/uL (1.8-7.7) H Lymphocytes # (Auto) 1.3 x10^3/uL (1.0-4.8) Monocytes # (Auto) 0.8 x10^3/uL (0.0-1.1) Eosinophils # (Auto) 0.0 x10^3/uL (0.0-0.7) Basophils # (Auto) 0.0 x10^3/uL (0.0-0.2) Urine Collection Type Unknown Urine Color Yellow Urine Clarity Clear Urine pH 7.5 (<5.0-8.0) Urine Specific [place] 1.010 (1.000-1.030) Urine Protein Negative mg/dL (NEG-TRACE) Urine Glucose (UA) Negative mg/dL (NEG) Urine Ketones (Stick) Negative mg/dL (NEG) Urine Blood Negative (NEG) Urine Nitrite Negative (NEG) Urine Bilirubin Negative (NEG) Urine Urobilinogen Dipstick 0.2 mg/dL (0.2 mg/dL) Urine Leukocyte Esterase Small (NEG) Urine RBC 1-2 /HPF (0-2) Urine WBC 5-10 /HPF (0-4) Urine Squamous Epithelial Cells Mod /LPF Urine Bacteria Many /HPF (0-FEW) Urine Mucus Slight /LPF Urine Test Negative (NEG) Sodium Level 141 mmol/L (136-145) Potassium Level 3.6 mmol/L (3.5-5.1) Chloride Level 105 mmol/L (98-107) Carbon Dioxide Level 29 mmol/L (21-32) Anion Gap 7 (6-14) Blood Urea Nitrogen 9 mg/dL (7-20) Creatinine 0.7 mg/dL (0.6-1.0) Estimated GFR (Cockcroft-Gault) 97.6 BUN/Creatinine Ratio 13 (6-20) Glucose Level 111 mg/dL (70-99) H Calcium Level 8.6 mg/dL (8.5-10.1) Total Bilirubin 0.4 mg/dL (0.2-1.0) Aspartate Amino Transferase (AST) 9 U/L (15-37) L Alanine Aminotransferase (ALT) 8 U/L (14-59) L Alkaline Phosphatase 40 U/L (46-116) L Total Protein 7.0 g/dL (6.4-8.2) Albumin 3.7 g/dL (3.4-5.0) Albumin/Globulin Ratio 1.1 (1.0-1.7) Lipase 74 U/L (73-393) Urine Opiates Screen Pos (NEG) Urine Methadone Screen Neg (NEG) Urine Barbiturates Neg (NEG) Urine Phencyclidine Screen Neg (NEG) Urine Amphetamine/Methamphetamine Neg (NEG) Urine Benzodiazepines Screen Neg (NEG) Urine Cocaine Screen Neg (NEG) Urine Cannabinoids Screen Pos (NEG) Urine Ethyl Alcohol Neg (NEG) Laboratory Tests 03/28/21 18:20 Laboratory Tests 03/28/21 18:20 Vital Signs: Vital Signs Date Time Temp Pulse Resp B/P (MAP) Pulse Ox O2 Delivery O2 Flow Rate FiO2 03/28/21 18:46 Room Air 03/28/21 17:58 98.2 92 15 110/55 (73 100 98.2 EKG: EKG: [] Radiology/Procedures: Radiology/Procedures: [] Impression: [facility] [id number] [place] [phone] IMAGING REPORT Signed PATIENT: JOSE CAPPS ACCOUNT: [id number] : 1990 LOCATION: ER AGE: 30 SEX: F EXAM STATUS: REG ER ORD. PHYSICIAN: DANA MCFADDEN APRN REASON: ABD PAIN, VOMITING, FEVER;OMNI 300, 75ML PROCEDURE: CT ABD PELV W/ IV CONTRST ONLY EXAM: CT Abdomen and Pelvis with IV contrast CLINICAL HISTORY: Reason: ABD PAIN, VOMITING, FEVER;OMNI 300, 75ML / Spl. Instr uctions: / History: . COMPARISON: 10/28/2017 TECHNIQUE: Helical CT of the abdomen and pelvis was performed following the administration of intravenous contrast. Axial, coronal and sagittal reformatted images were generated. PQRS compliance statement - One or more of the following individualized dose reduction techniques were utilized for this study: 1. Automated exposure control 2. Adjustment of the mA and/or kV according to patient size 3. Use of iterative reconstruction technique FINDINGS: Lower Chest: Visualized lung bases are clear. Abdomen and Pelvis: There is normal in size and morphology with small amount of focal fat adjacent to the falciform ligament. The gallbladder, spleen, adrenals, pancreas are unremarkable. There is normal cortical enhancement of the right kidney. No nephrolithiasis or hydronephrosis. There is focal loss of the normal cortical medullary differentiation involving the superior pole of the left kidney, no definite perinephric fat stranding. There is mild dilation of the left renal collecting system. No nephro or ureterolithiasis. The stomach is unremarkable and filled with likely ingested material. There is no evidence of bowel obstruction or definite inflammatory changes. There is a moderate colonic stool burden throughout the large bowel. The appendix is not visualized. There is no free fluid or free air within the abdomen. There is no pathologically enlarged abdominal or pelvic lymph nodes. Vasculature appears normal in course and caliber. The urinary bladder is partially decompressed precluding complete evaluation. Uterus appears enlarged which may represent normal physiologic changes. Cystic structures in bilateral adnexa likely represent normal ovaries. There is a small amount of fluid within the pelvis. Abdominal wall is unremarkable. No acute or suspicious osseous abnormalities. IMPRESSION: 1. Possible area of pyelonephritis involving the superior pole of the left kidney versus cortical scar. Correlation with urinalysis is recommended. 2. The appendix is not well-visualized. There is no definite evidence of acute inflammatory process within the right lower quadrant. 3. The uterus is edentulous which may represent normal physiologic changes. There is a trace/small amount of free fluid within the pelvis which may be physiologic. Clinical correlation is advised. Further evaluation pelvic ultrasound may be considered. Electronically signed by: Marisol Valdivia DO (03/28/2021 7:43 PM) [facility] DICTATED and SIGNED BY: MARISOL VALDIVIA DO DATE: 03/28/[id number] 0 Course & Med Decision Making: Course & Med Decision Making Pertinent Labs and Imaging studies reviewed. (See chart for details) See HPI. Patient is tolerating p.o. fluid. Urinalysis shows infection. CT abdomen pelvis shows infection. She is given Rocephin 1 g. Have sent off her urine for chlamydia and gonorrhea. She is given a total of 100 mcgs of fentanyl. Urine is positive for opiates and marijuana. Alert and oriented x4. Speaks in full clear sentences. Ambulatory with a steady gait. Skin pink warm and dry. Nonseptic appearing. Patient is discharged home with antibiotic. [] Jesús Disclaimer: Jesús Disclaimer: This electronic medical record was generated, in whole or in part, using a voice recognition dictation system. Departure Departure Impression: Primary Impression: Concern about STD in female without diagnosis Additional Impression: Pyelonephritis Disposition: HOME / SELF CARE / HOMELESS Condition: STABLE Referrals: NO PCP (PCP) Patient Instructions: Pyelonephritis, Adult Additional Instructions: Follow-up with primary care as soon as possible. Take medication as prescribed and with food. Drink plenty of fluids. If anything worsens or you are not able to keep down any kind of fluids return emergency room. Continue taking ibuprofen or Tylenol for pain. Scripts Ondansetron (ONDANSETRON ODT) 4 Mg Tab.rapdis 1 TAB PO PRN Q6-8HRS, #16 TAB Prov: DANA MCFADDEN APRN 03/28/21 Doxycycline Hyclate (DOXYCYCLINE HYCLATE) 100 Mg Capsule 1 CAP PO BID, #14 CAP Prov: DANA MCFADDEN GRAIN CLEANER AND TRANSFER OPERATOR 03/28/21 Cephalexin (KEFLEX) 500 Mg Capsule 1 CAP PO TID, #30 CAP Prov: DANA MCFADDEN GRAIN CLEANER AND TRANSFER OPERATOR 03/28/21 DANA MCFADDEN APRN Mar 28, 2021 19:07
--- NOTE | 2021-03-28 19:45 | RAD ---
EXAM: CT Abdomen and Pelvis with IV contrast CLINICAL HISTORY: Reason: ABD PAIN, VOMITING, FEVER;OMNI 300, 75ML / Spl. Instructions: / History: . COMPARISON: 10/28/2017 TECHNIQUE: Helical CT of the abdomen and pelvis was performed following the administration of intrave nous contrast. Axial, coronal and sagittal reformatted images were generated. PQRS compliance statement - One or more of the following individualized dose reduction techniques wer e utilized for this study: 1. Automated exposure control 2. Adjustment of the mA and/or kV according to patient size 3. Use of iterative reconstruction technique FINDINGS: Lower Chest: Visualized lung bases are clear. Abdomen and Pelvis: There is normal in size and morphology with small amount of focal fat adjacent to the falciform ligam ent. The gallbladder, spleen, adrenals, pancreas are unremarkable. There is normal cortical enhanceme nt of the right kidney. No nephrolithiasis or hydronephrosis. There is focal loss of the normal corti arjun medullary differentiation involving the superior pole of the left kidney, no definite perinephric fat stranding. There is mild dilation of the left renal collecting system. No nephro or ureterolithi asis. The stomach is unremarkable and filled with likely ingested material. There is no evidence of bowel o bstruction or definite inflammatory changes. There is a moderate colonic stool burden throughout the large bowel. The appendix is not visualized. There is no free fluid or free air within the abdomen. There is no pathologically enlarged abdominal or pelvic lymph nodes. Vasculature appears normal in co urse and caliber. The urinary bladder is partially decompressed precluding complete evaluation. Uterus appears enlarged which may represent normal physiologic changes. Cystic structures in bilatera l adnexa likely represent normal ovaries. There is a small amount of fluid within the pelvis. Abdominal wall is unremarkable. No acute or suspicious osseous abnormalities. IMPRESSION: 1. Possible area of pyelonephritis involving the superior pole of the left kidney versus cortical sca r. Correlation with urinalysis is recommended. 2. The appendix is not well-visualized. There is no definite evidence of acute inflammatory process w ithin the right lower quadrant. 3. The uterus is edentulous which may represent normal physiologic changes. There is a trace/small am ount of free fluid within the pelvis which may be physiologic. Clinical correlation is advised. Furth er evaluation pelvic ultrasound may be considered. Electronically signed by: Krishna Valdivia DO (03/28/2021 7:43 PM) [facility] [place]
[2021-03-28] MEDS ORDERED: CEPH500C PO (20:07)
[2021-03-28] MEDS ORDERED: ONDA4TAB12 PO (20:10)
[2021-03-28] MEDS ORDERED: DOXY100C3 PO (20:10)
[2021-03-28] MEDS ORDERED: cefTRIAXone IV Push 1 GM VIAL. IVP ONE (20:15)
[2021-03-28 20:21] VITALS: BP 92/48
== END 2021-03-28 20:38 | disposition home or self-care (01) ==
LOC: ER 17:16
DX: N12 Tubulo-interstitial nephritis, not specified as acute or chronic (principal); Z20.2 Contact with and (suspected) exposure to infections with a predominantly sexual mode of transmission; G43.909 Migraine, unspecified, not intractable, without status migrainosus; J45.909 Unspecified asthma, uncomplicated; F17.200 Nicotine dependence, unspecified, uncomplicated; Z98.51 Tubal ligation status; Z88.5 Allergy status to narcotic agent; Z88.6 Allergy status to analgesic agent
CPT/HCPCS: 36415; 74177; 80053; 80307; 81001; 81025; 83690; 85025; 87086; 87491; 87591; 96361; 96374; 96375; 96376; 99285; J0696; J2405; J3010; J7030; Q9967; 87077; 87186

== ENCOUNTER 2021-04-11 00:59 | Emergency (ER) | payer MEDICAID ==
[~2021-04-11] VITALS: Ht 157.5 cm; Wt 54.5 kg
[~2021-04-11 00:59] MED LIST changes: +CEPH500C PO; +DOXY100C3 PO; +ONDA4TAB12 PO
[2021-04-11 01:22] VITALS: BP 122/74
--- NOTE | 2021-04-11 01:26 | PHYS DOC ---
Past Medical History Past Medical History: Asthma, Hyperthyroid, Migraines Past Surgical History: Tubal ligation Additional Past Surgical Histo: D&C, RUPTURED CYST REMOVAL Smoking Status: Current Every Day Smoker Alcohol Use: None Drug Use: None General Adult HPI: HPI: 30 yo F PMH asthma, hyperthyroidism and migraines, presents to the ed with her sister, (patient consents to his/her/their knowledge and involvement in pts' medical care), c/o right knee pain after patient fell approximately 3 hours ago while running up concrete stairs. Patient states she landed on a flexed knee. Did not hit her head or pass out. Complains of numbness over the kneecap and shooting pains that go up to her right thigh and hip. Review of Systems: Review of Systems: Constitutional: Denies fever or chills. [] Eyes: Denies change in visual acuity. [] HENT: Denies nasal congestion or sore throat. [] Respiratory: Denies cough or shortness of breath. [] Cardiovascular: Denies chest pain or edema. [] GI: Denies nausea or vomiting : Denies dysuria or hematuria Musculoskeletal: Denies back pain or saddle anesthesia Integument: Denies rash or diaphoresis Neurologic: Denies headache, focal weakness or sensory changes. [] Endocrine: Denies polyuria or polydipsia. [] Lymphatic: Denies swollen glands. [] Psychiatric: Denies depression or anxiety. [] Heart Score: C/O Chest Pain: No Risk Factors: Risk Factors: DM, Current or recent (<one month) smoker, HTN, HLP, family history of CAD, obesity. Risk Scores: Score 0 - 3: 2.5% MACE over next 6 weeks - Discharge Home Score 4 - 6: 20.3% MACE over next 6 weeks - Admit for Clinical Observation Score 7 - 10: 72.7% MACE over next 6 weeks - Early Invasive Strategies Allergies: Allergies: Allergies Coded Allergies Type Severity Reaction Last Updated Verified morphine Allergy Intermediate Hives 03/28/21 Yes tramadol Allergy Intermediate VOMITING 03/28/21 Yes Physical Exam: PE: Constitutional: Well developed, well nourished, no acute distress, non-toxic appearance. HENT: Normocephalic, atraumatic, Eyes: EOMI, conjunctiva normal, no discharge. Neck: Normal range of motion, supple, Cardiovascular: S1/2 present, regular rhythm Lungs & Thorax: Speaking in full sentences, bilateral equal chest rise, no tachypnea or increased work of breathing Abdomen: soft, no tenderness, no pain with pelvic rock, normal appearing right hip Skin: Warm, dry, large bruise over patella Back: No midline tenderness, no CVA tenderness. [] Extremities: prefers right knee flexed, no ankle or fibular head ttp, pulses intact, swollen right knee, cannot appreciate any ligamentous laxity with varus/valgus/Michael/reverse Michael's testing Neurologic: Alert and oriented X 3, normal motor function, normal sensory function, no focal deficits noted. [] Psychologic: Affect normal, judgement normal, mood normal. [] EKG: EKG: [] Radiology/Procedures: Radiology/Procedures: IMAGING REPORT Signed PATIENT: JOSE CAPPS ACCOUNT: [id number] : 1990 LOCATION: ER AGE: 30 SEX: F EXAM STATUS: REG ER ORD. PHYSICIAN: SHANNON REYES DO REASON: right hip pain PROCEDURE: RIGHT FEMUR XRAY XR PELVIS 1-2V, XR FEMUR_RIGHT, XR KNEE 3 VIEWS_RT Clinical Indication: Reason: right hip pain / Spl. Instructions: / History: Comparison: None. Findings: No acute pelvic fracture. Sacroiliac joints are symmetric. No diastasis of symphysis pubis. The mineralization is normal. Soft tissues unremarkable. The hip joints are intact. No acute fracture of the femur is identified. Soft tissues unremarkable. There is no knee joint effusion. The tricompartmental joint spaces of the knee are maintained. The patella is in anatomic position. No acute fracture. Question mild subcutaneous edema prepatellar. IMPRESSION: No acute fracture. Electronically signed by: Nathanael Jalloh MD (04/11/2021 3:12 AM) [facility] DICTATED and SIGNED BY: NATHANAEL JALLOH MD DATE: 04/11/21 [id number] 0 Course & Med Decision Making: Course & Med Decision Making Pertinent Labs and Imaging studies reviewed. (See chart for details) Concern for right knee contusion. Will recommend crutches, rice instructions and supportive care. Will discharge home with strict ED return precautions were given for severe pain, neurologic deficits or repeat injury. Encouraged urgent outpatient follow-up with PMD and orthopedic surgery if pain should persist. Life-threatening processes were considered but are low suspicion at this time, given history, physical exam and ED workup. Pt was educated on all prescription medications and adverse effects. All patient's questions were answered and pt was stable at time of discharge. Life/limb-threatening differential includes but is not limited to, avascular necrosis, septic arthritis, malignancy, compartment syndrome, fracture/ligamentous injury/overuse, decompression sickness, seronegative spondyloarthropathies, trauma including dislocation/fracture, Lyme disease, lupus, arthritis differentials, gout/pseudogout or decompression sickness. I have spoken with the patient and/or caregivers. I explained the patient's condition, diagnoses and treatment plan based on the information available to me at this time. I have answered the patient and/or caregiver's questions and addressed any concerns. The patient and/or caregivers have a good understanding of patient's diagnosis, condition and treatment plan as can be expected at this point. Vital signs have been stable. Patient's condition is stable and appropriate for discharge from the emergency department. Patient will pursue further outpatient evaluation with primary care physician or other designated or consulting physician as outlined in the discharge instructions. The patient and/or caregivers are agreeable to this plan of care and follow-up instructions have been explained in detail. The patient and/or caregivers have received these instructions in written form and have expressed an understanding of the discharge instructions. The patient and/or caregivers are aware that any significant change of condition or worsening of symptoms should prompt immediate return to this or the closest emergency department or [facility] to 911. Jesús Disclaimer: Jesús Disclaimer: This electronic medical record was generated, in whole or in part, using a voice recognition dictation system. Departure Departure Impression: Primary Impression: Contusion of right knee Disposition: HOME / SELF CARE / HOMELESS Condition: STABLE Referrals: NO PCP (PCP) Follow-up with your primary care physician in 24 to 48 hours OR FOLLOW UP WITH FAMILY MEDICINE: [id number] [facility], [facility] [address] [place] [address] Patient Instructions: Contusion, Knee Pain, RICE - Routine Care for Injuries Additional Instructions: FOLLOW UP WITH ORTHOPEDICS: FOR DEFINITIVE MANAGEMENT of right knee pain Orthopaedic Surgery [address] [facility], [facility] [address] [place] [address] EMERGENCY DEPARTMENT GENERAL DISCHARGE INSTRUCTIONS Thank you for coming to [facility] (ED) today and trusting us with you care. We trust that you had a positive experience in our Emergency Department. If you wish to speak to the department management, you may call the Director at [phone]. YOUR FOLLOW UP INSTRUCTIONS ARE FOLLOWS: 1. Do you have a private Doctor? If you do not have a private doctor, please ask for a resource list of physicians or clinics that may be able to assist you with foll ow up care. 2. The Emergency Physicain has interpreted your x-rays. The X-Ray specialist will also review them. If there is a change in the findings, you will be notified in 48 hours when at all possible. 3. A lab test or culture has been done, your results will be reviewed and you will be notified if you need a change in treatment. ADDITIONAL INSTRUCTIONS AND INFORMATION: 1. Your care today has been supervised by a physician who is specially trained in emergency care. Many problems require more than one evaluation for a complete diagnosis and treatment. We recommend that you schedule your follow up appointment as re commended to ensure complete treatment of you illness or injury. If you are unable to obtain follow up care and continue to have a problem, or if your condition worsens, we recommend that you return to the ED. 2. We are not able to safely determine your condition over the phone nor are we able to give sound medical advice over the phone. For these safety reasons, if you call for medical advice we will ask you to come to the ED for further evaluation. 3. If you have any questions regarding these discharge instructions please call the ED at [phone]. SAFETY INFORMATION: In the interest of safety, wellness, and injury prevention; we encourage you to wear your sealbelt, if you smoke; quite smoking, and we encourage family to use a protective helmet for bicycling and other sporting events that present an increased risk for head injury. IF YOUR SYMPTOMS WORSEN OR NEW SYMPTOMS DEVELOP, OR YOU HAVE CONCERNS ABOUT YOUR CONDITION; OR IF YOUR CONDITION WORSENS WHILE YOU ARE WAITING FOR YOUR FOLLOW UP APPOINTMENT; EITHER CONTACT YOUR PRIMARY CARE DOCTOR, THE PHYSICIAN WHOSE NAME AND NUMBER YOU WERE GIVEN, OR RETURN TO THE ED IMMEDIATELY. VOHSSHANNON DO Apr 11, 2021 01:26
[2021-04-11] MEDS ORDERED: ACETAMINOPHEN 325 MG TABLET. PO ONE (03:00)
[2021-04-11] MEDS ORDERED: IBUPROFEN 200 MG TABLET. PO ONE (03:00)
--- NOTE | 2021-04-11 03:14 | RAD ---
XR PELVIS 1-2V, XR FEMUR_RIGHT, XR KNEE 3 VIEWS_RT Clinical Indication: Reason: right hip pain / Spl. Instructions: / History: Comparison: None. Findings: No acute pelvic fracture. Sacroiliac joints are symmetric. No diastasis of symphysis pubis. The title examiner alization is normal. Soft tissues unremarkable. The hip joints are intact. No acute fracture of the femur is identified. Soft tissues unremarkable. There is no knee joint effusion. The tricompartmental joint spaces of the knee are maintained. The pa tella is in anatomic position. No acute fracture. Question mild subcutaneous edema prepatellar. IMPRESSION: No acute fracture. Electronically signed by: Nathanael Steele MD (04/11/2021 3:12 AM) [facility]
--- NOTE | 2021-04-11 03:14 | RAD ---
XR PELVIS 1-2V, XR FEMUR_RIGHT, XR KNEE 3 VIEWS_RT Clinical Indication: Reason: right hip pain / Spl. Instructions: / History: Comparison: None. Findings: No acute pelvic fracture. Sacroiliac joints are symmetric. No diastasis of symphysis pubis. The gun examiner alization is normal. Soft tissues unremarkable. The hip joints are intact. No acute fracture of the femur is identified. Soft tissues unremarkable. There is no knee joint effusion. The tricompartmental joint spaces of the knee are maintained. The pa tella is in anatomic position. No acute fracture. Question mild subcutaneous edema prepatellar. IMPRESSION: No acute fracture. Electronically signed by: Nathanael Steele MD (04/11/2021 3:12 AM) ERIC
--- NOTE | 2021-04-11 03:14 | RAD ---
XR PELVIS 1-2V, XR FEMUR_RIGHT, XR KNEE 3 VIEWS_RT Clinical Indication: Reason: right hip pain / Spl. Instructions: / History: Comparison: None. Findings: No acute pelvic fracture. Sacroiliac joints are symmetric. No diastasis of symphysis pubis. The can line examiner alization is normal. Soft tissues unremarkable. The hip joints are intact. No acute fracture of the femur is identified. Soft tissues unremarkable. There is no knee joint effusion. The tricompartmental joint spaces of the knee are maintained. The pa tella is in anatomic position. No acute fracture. Question mild subcutaneous edema prepatellar. IMPRESSION: No acute fracture. Electronically signed by: Nathanael Steele MD (04/11/2021 3:12 AM) ERIC
== END 2021-04-11 04:01 | disposition home or self-care (01) ==
LOC: ER 00:59
DX: M25.561 Pain in right knee (principal); M25.551 Pain in right hip; G89.11 Acute pain due to trauma; G43.909 Migraine, unspecified, not intractable, without status migrainosus; J45.909 Unspecified asthma, uncomplicated; F17.200 Nicotine dependence, unspecified, uncomplicated; W18.39XA Other fall on same level, initial encounter; Y93.89 Activity, other specified; Y92.89 Other specified places as the place of occurrence of the external cause; Y99.8 Other external cause status
CPT/HCPCS: 72170; 73552; 73562; 81025; 99284